=== PATIENT | female | born 1955 | race Caucasian/White ===

== ENCOUNTER 2017-12-08 13:43 | Day surgery (SDC) | payer BC ==
[2017-12-08 14:10] VITALS: BP 143/64; PULSE 96; RESP 18; TEMP 97.8; O2SAT 94
[2017-12-08] MEDS ORDERED: IBUP-232 PO (14:13)
[2017-12-08] MEDS ORDERED: IOHEXOL 300 MG/ML 50 ML BTL (for RAD DIAG) OTHER ONE (15:00)
[2017-12-08] MEDS ORDERED: TRIAMCINOLONE ACETONIDE 40 MG/ML VIAL ONE (15:48)
[2017-12-08 16:15] VITALS: BP 102/59; PULSE 70; RESP 18; TEMP 97.9; O2SAT 99
--- NOTE | 2017-12-08 16:18 | PD.RAD ---
Post Procedure Progress Note Pre Procedure Diagnosis: (1) Herniated nucleus pulposus, L3-4 left Post Procedure Diagnosis: (1) Herniated nucleus pulposus, L3-4 left Procedure Date: December 08, 2017 Supervising Radiologist: Albino Castle Estimated blood loss: none Anesthesia: Local Plan of Activity Patient to Unit: ROPU Patient Condition: Good Additional Comments: Successful Left L3/L4 level nerve root injection Full report to follow See PACS Report for procedural detail/treatment Albino Castle MD December 08, 2017 16:18
--- NOTE | 2017-12-09 15:59 | RADRPT ---
EXAM DATE/TIME: 12/08/2017 16:08 [facility] COMPARISON: No previous studies available for comparison. INDICATIONS : Patient with a history of lower back pain. MEDICAL HISTORY : Back pain SURGICAL HISTORY : Tonsillectomy Cervical lesion removal ENCOUNTER: Initial ACUITY: >1 year PAIN SCORE: 5/10 LOCATION: Lower back FLUORO TIME: 1.20 minutes IMAGE SERIES: 1 CONTRAST: 1 cc Omnipaque (iohexol) 300 ACCESS LEVEL: Left L3 nerve root MEDICATIONS: 1.) 2 cc Lidocaine 2.) 40 mg triamcinolone (Kenalog) RESPONSE: Pre procedure pain level was 5/10. Post procedure pain level was 0/10. PROCEDURE : 1. Fluoroscopically guided nerve root injection. The risks, benefits and alternatives to the procedure were explained and verbal and written consent w as obtained. The site was prepped in sterile fashion. Full sterile technique was used, including ca p, mask, sterile gloves and gown and a large sterile sheet. Hand hygiene and 2% chlorhexidine and/or betadine/alcohol prep was utilized per protocol for cutaneous antisepsis. The skin and subcutaneous tissues were infiltrated with local anesthetic solution. With fluoroscopic guidance the targeted nerve root was localized and positive contrast was injected t o confirm epidural spread. Following this the prescribed medication was injected surrounding the ner ve root sleeve. The patient's preprocedure pain and post procedure pain levels were recorded. CONCLUSION: Uncomplicated fluoroscopically guided nerve root injection as above. Albino Castle MD on December 09, 2017 at 15:57 Board Certified Radiologist. This report was verified electronically.
== END 2017-12-08 16:46 | disposition home or self-care (01) ==
LOC: HROP 13:43 → HRIP 13:48 → HROP 16:46
PROVIDERS: ATTEND Family Medicine
DX: M51.26 Other intervertebral disc displacement, lumbar region (principal)
CPT/HCPCS: 64483; J3301; Q9967; 64493